=== PATIENT | female | born 1985 | race African-American/Black ===

== ENCOUNTER 2017-04-06 13:01 | Emergency (ER) | payer MEDICAID ==
[~2017-04-06] VITALS: Ht 165.1 cm; Wt 87.0 kg
[2017-04-06 13:02] VITALS: BP 138/74; PULSE 89; RESP 18; TEMP 98.4; O2SAT 99
--- NOTE | 2017-04-06 15:14 | PD ---
HPI Chief Complaint: Medical Clearance Time Seen by Provider: 14:51 Travel History International Travel<30 days: No Contact w/Intl Traveler<30days: No Traveled to known affect area: No History of Present Illness HPI 32-year-old female presents to the emergency Department with complaint of bilateral breast pain and lumps 7 days. Denies history of pain like this before. Denies nipple discharge. Denies change in the skin of the breasts. Denies breast edema or erythema. Denies fever, vomiting. Last menstrual period March 21. Has taken Tylenol for symptom management. Rates pain 8/ 10. Describes pain as an aching sensation. Pain is worse when she doesn't wear a bra or when she is cold. Pain is better when she wears abroad. Does not have a primary care provider. No known allergies. Denies significant past medical history. Denies family history of breast cancer. Has no other medical complaints. No other modifying factors or associated signs and symptoms. PFSH Past Medical History Medical History: Denies Significant Hx Blood Disorders: No Diminished Hearing: No Immunizations Current: Yes Migraines: Yes ?: Not LMP: 03/29/17 : 3 Para: 3 Past Surgical History Surgical History: No Previous Surgery Social History Alcohol Use: No Tobacco Use: No Substance Use: No (DENIES) Allergies-Medications (Allergen,Severity, Reaction): Coded Allergies: No Known Allergies (Verified Adverse Reaction, Unknown, 04/06/17) Reported Meds & Prescriptions Reported Meds & Active Scripts Active No Active Prescriptions or Reported Medications Review of Systems Except as stated in HPI: all other systems reviewed are Neg Physical Exam Narrative GENERAL: Well-nourished, well-developed black female patient, in no acute distress; afebrile, nontoxic-appearing SKIN: Warm and dry. HEAD: Atraumatic. Normocephalic. EYES: Pupils equal and round. No scleral icterus. No injection or drainage. ENT: Mucosa pink and moist. Airway patent. NECK: Trachea midline. BREAST: No palpable lumps on palpation of bilateral breast; breasts are without erythema, edema, nipple discharge, skin dimpling; no axillary lymphadenopathy bilaterally. CARDIOVASCULAR: Regular rate. RESPIRATORY: No accessory muscle use. GASTROINTESTINAL: Obese. MUSCULOSKELETAL: No obvious deformities. No clubbing. No cyanosis. No edema. NEUROLOGICAL: Awake and alert. Oriented 3. No obvious cranial nerve deficits. Motor grossly within normal limits. Normal speech. PSYCHIATRIC: Appropriate mood and affect; insight and judgment normalblack Data Data Last Documented VS Vital Signs Date Time Temp Pulse Resp B/P (MAP) Pulse Ox O2 Delivery O2 Flow Rate FiO2 04/06/17 15:25 04/06/17 13:02 98.4 89 18 99 Orders Orders Ibuprofen (Motrin) (04/06/17 15:30) Ed Discharge Order (04/06/17 15:20) [facility] Medical Decision Making Medical Screen Exam Complete: Yes Emergency Medical Condition: Yes Medical Record Reviewed: Yes Differential Diagnosis Cyst, breast lump, mastitis, less likely breast abscess Narrative Course 32-year-old female with equal exam consistent with normal breast examination. I do not palpate any lumps to bilateral breast. No axillary lymphadenopathy. No nipple discharge or skin dimpling. Patient is afebrile nontoxic screen. Denies fever, vomiting. Ibuprofen Administered in the ER. Instructed patient to follow up with gynecology. Instructed patient to follow up with primary care provider. Patient verbalizes understanding and agreement with treatment plan. Patient is medically cleared and stable for discharge. Discussed reasons to return to the emergency department. Patient agrees with treatment plan. The patients vital signs are stable and the patient is stable for outpatient follow-up and treatment. Patient discharged home, stable and in no acute distress. Diagnosis Primary Impression: Pain of both breasts Referrals: Vice [employer] Primary Care Physician Additional Instructions: Ibuprofen or Tylenol instructed nesting to for pain Warm and/or cold compresses to reduce pain Wear bra support to decrease pain; sport bra for increased support Follow up with level vial inside grinder Follow-up with primary care provider Return to the emergency department immediately with worsening of symptoms Med/Other Pt SpecificInfo: No Change to Meds, No Meds Exist/No RX given Scripts No Active Prescriptions or Reported Meds Disposition: 01 DISCHARGE HOME Condition: Stable Tiff Daigle Apr 06, 2017 15:14
[2017-04-06] MEDS ORDERED: IBUPROFEN 800 MG TAB PO ONE (15:30)
== END 2017-04-06 15:26 | disposition home or self-care (01) ==
LOC: NEPD 13:01
DX: N64.4 Mastodynia (principal)
CPT/HCPCS: 99282